=== PATIENT | female | born 1945 | race Hispanic/Latino ===

== ENCOUNTER → 2018-04-18 | Day surgery (SDC) | payer MEDICARE ==
[~2018-04-18] MED LIST: ASPIR 8181 MG PO; CLOPIDOGREL75 MG PO; CRESTOR10 MG PO; LIDOCAINE HCL 2% LOCAL INJ 5 ML SDV VIAL INJ ONE; METFORMIN HCL500 MG PO; METOCLOPRAMIDE HCL 10 MG/2ML VIAL ONE; ONDANSETRON HCL INJ 2 MG/ML VIAL ONE; PROPOFOL IV EMULSION 10 MG/ML 20 ML VIAL ONE; TRADJENTA5 MG PO
[2018-04-18 09:01] LABS: BASOPHILS # (AUTO) 0.1 (0.0-0.1); BASOPHILS % 0.9 % (0.0-1.0); EOSINOPHILS # (AUTO) 0.5 (0.0-0.4); EOSINOPHILS % 7.1 % (0.0-6.0); HEMATOCRIT 35.9 % (34.2-44.1); LYMPHOCYTES # (AUTO) 1.6 (1.0-3.2); LYMPHOCYTES % 25.9 % (18.0-39.1); MEAN CORPUSCULAR HGB CONC 33.4 g/dL (31-35); MEAN CORPUSCULAR VOLUME 92.8 fL (81-99); MONOCYTES # (AUTO) 0.7 (0.2-0.8); MONOCYTES % 10.9 % (4.4-11.3); NEUTROPHILS # (AUTO) 3.5 (2.1-6.9); NEUTROPHILS % 54.9 % (38.7-80.0); PLATELET COUNT 231 x10e3/uL (140-360); RED BLOOD COUNT 3.87 x10e6/uL (3.6-5.1)
[2018-04-18 11:25] VITALS: BP 129/53
--- OUTSIDE RECORDS SUMMARY | 2018-04-19 15:40 | XMS REPORT | Continuity of Care Document ---
Author Author [facility] Interface Address Unknown Phone Unavailable Problems Problem Status Onset Date Classification Date Reported Comments Source R13.10 - DYSPHAGIA, UNSPECIFIED K21 - [place] Active 03/29/2018 [facility] V76.12 - SCREEN MAMMOGRA Active 11/17/2011 [facility] Medications Medication Details Route Status Patient Instructions Ordering Provider Order Date Source Allergies, Adverse Reactions, Alerts Substance Category Reaction Severity Reaction type Status Date Reported Comments Source Immunizations Immunization Date Given Site Status Last Updated Comments Source Results Order Name Results Value Reference Range Date Interpretation Comments Source Upper GI series DX Upper GI series DX Exam: Upper GI swallow exam Reason for Exam: Dysphagia. Gastroesophageal reflux. Nausea. 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 Surrounding skeletal structures are unremarkable. Patient ingested barium and air crystals without incident. The esophagus is normal in appearance without evidence for mucosal irregularities or abnormal filling defects. No tertiary contraction waves or hiatal hernia. During the exam, there was no evidence seen for gastroesophageal reflux. The stomach and proximal duodenum are unremarkable in appearance. Fluoro time 1 minute, 8 seconds. Total exam MQI=[id number] mGy-cm. Impression: 1. Unremarkable upper GI swallow exam. 04/04/2018 - - Read by: Arden Hadley MD Dictated Date/time: 04/04/18 12:11 Electronically Signed by: Arden Hadley MD 04/04/18 12:12 FINAL REPORT [facility]amm[facility] [place] Digital Mammo Scre[facility] [place] - DIGITAL MAMMO SCREENING [place] BILATERAL DIGITAL SCREENING MAMMOGRAM WITH CAD: 03/07/2013 CLINICAL: V76.12. Current study was evaluated with a Computer Aided Detection (CAD) system. Comparison is made to exams dated: 11/22/2011 mammogram and 09/15/2010 mammogram - [facility]. There are scattered fibroglandular elements in both breasts that could obscure a lesion on mammography. No significant masses, calcifications, or other findings are seen in either breast. There has been no significant interval change. IMPRESSION: NEGATIVE There is no mammographic evidence of malignancy. A screening mammogram in one year is recommended. Chris Rapp M.D. lb/penrad:03/10/2013 10:47:23 R&D Engineer: Tessie COTTRELL)(Jose), [facility] letter sent: Normal exam Mammogram BI-RADS: 1 Negative 03/07/2013 - - Read by: Chris Rapp Dictated Date/time: 03/10/13 10:47 Electronically Signed by: Chris Rapp MD 03/10/13 10:47 FINAL REPORT [facility] Vital Signs Vital Sign Value Date Comments Source Encounters Location Location Details Encounter Type Encounter Number Reason For Visit Attending Provider ADM Date DC Date Status Source OD [id number] V76.12 - SCREEN MAMMOGRA PRATIK NOELERSON 11/22/2011 Active [facility] Procedures Procedure Code Date Perfomer Comments Source
== END | disposition home or self-care (01) ==
LOC: OR 07:10
PROVIDERS: ATTEND Internal Medicine
DX: K20.9 Esophagitis, unspecified (principal); K29.50 Unspecified chronic gastritis without bleeding; B96.81 Helicobacter pylori [H. pylori] as the cause of diseases classified elsewhere; K31.89 Other diseases of stomach and duodenum; K21.9 Gastro-esophageal reflux disease without esophagitis; I10 Essential (primary) hypertension; E11.9 Type 2 diabetes mellitus without complications; Z79.84 Long term (current) use of oral hypoglycemic drugs; Z79.82 Long term (current) use of aspirin; Z79.02 Long term (current) use of antithrombotics/antiplatelets
CPT/HCPCS: 36415; 43239; 82948; 85025; 93005; J2001; J2405; J2765